=== PATIENT | female | born 2000 | race Two or more races ===

== ENCOUNTER 2023-04-18 17:35 | Emergency (ER) | payer SELFPAY ==
[2023-04-18 19:28] LABS: Bilirubin Neg (Negative); Blood, Urine 50 (Negative); Clarity Clear (Clear); Glucose, Urine (Dipstick) Normal (Negative); Ketone, Urine Negative (Negative); Leukocyte 25 (Negative); Nitrite Negative (Negative); Protein, Urine (Dipstick) 15 mg/dl (Neg-Trace); Urobilinogen Normal mg/dL (Less than 2)
[2023-04-18 19:59] LABS: Bacteria/HPF 1+ HPF (None Seen); CAUTI Indications for Culture Pelvic or flank pain; RBC/HPF 0-3 HPF (0-3); Squamous Epithelial 0-3 HPF (0-3); WBC/HPF 0-3 HPF (0-3)
[2023-04-18 20:00] LABS: Urine Culture Reflex No No
[2023-04-18 20:28] LABS: #Eosinphils 0.1 10x3/uL (0.0-0.5); #Monocytes 0.9 10x3/uL (0.0-1.1); #Neutrophils 5.8 10x3/uL (1.5-8.4); %Basophils 0.4 % (0.0-2.0); %Eosinophils 1.2 % (0.0-6.0); %Lymphocytes 35.1 % (18.0-47.0); %Monocytes 8.6 % (0.0-10.0); %Neutrophils 54.3 % (40.0-75.0); Hemoglobin 12.9 g/dL (12.0-15.5); Mean Corpuscular HGB CONC 33.2 g/dL (32.0-36.0); Mean Corpuscular Hemoglobin 28.6 pg (27.0-33.0); Mean Platelet Volume 10.4 fl (7.4-10.4); Platelet Count 346 10x3/uL (150-450); RBC Distribution Width 12.3 % (11.5-14.5); Red Blood Cell (RBC) Count 4.51 10x6/uL (3.90-5.03); White Blood Cell (WBC) Count 10.6 10x3/uL (3.5-10.5)
== END 2023-04-18 21:26 | disposition home or self-care (01) ==
LOC: CSHERS 17:35
DX: O26.851 Spotting complicating pregnancy, first trimester (principal); O99.891 Other specified diseases and conditions complicating pregnancy; R00.0 Tachycardia, unspecified; Z3A.01 Less than 8 weeks gestation of pregnancy
CPT/HCPCS: 36415; 76856; 81001; 84702; 85025; 86900; 86901

== ENCOUNTER 2023-04-21 08:51 | Emergency (ER) | payer SELFPAY | END 2023-04-21 10:58 | disposition home or self-care (01) | LOC: CSHERS 08:51 | DX: O26.851 Spotting complicating pregnancy, first trimester (principal); O99.281 Endocrine, nutritional and metabolic diseases complicating pregnancy, first trimester; E05.90 Thyrotoxicosis, unspecified without thyrotoxic crisis or storm; Z3A.01 Less than 8 weeks gestation of pregnancy | CPT/HCPCS: 36415; 84702; 99283 ==

== ENCOUNTER 2023-07-09 11:09 | Emergency (ER) | payer MEDICAID, OTHER ==
[2023-07-09 11:42] LABS: Bilirubin Neg (Negative); Blood, Urine Negative (Negative); Glucose, Urine (Dipstick) Normal (Negative); Ketone, Urine Negative (Negative); Leukocyte Negative (Negative); Nitrite Negative (Negative); Protein, Urine (Dipstick) Negative (Neg-Trace); Specific Gravity, Urine 1.025 (1.005-1.030); Urobilinogen Normal mg/dL (Less than 2)
[2023-07-09 11:49] LABS: #Eosinphils 0.2 10x3/uL (0.0-0.5); #Monocytes 0.9 10x3/uL (0.0-1.1); #Neutrophils 6.9 10x3/uL (1.5-8.4); %Basophils 0.3 % (0.0-2.0); %Lymphocytes 18.5 % (18.0-47.0); %Monocytes 8.9 % (0.0-10.0); Hematocrit 35.5 % (34.9-44.5); Hemoglobin 12.2 g/dL (12.0-15.5); Mean Corpuscular HGB CONC 34.4 g/dL (32.0-36.0); Mean Corpuscular Hemoglobin 29.8 pg (27.0-33.0); Mean Corpuscular Volume 86.8 fl (81.6-98.3); Mean Platelet Volume 10.1 fl (7.4-10.4); Platelet Count 315 10x3/uL (150-450); RBC Distribution Width 12.9 % (11.5-14.5); Red Blood Cell (RBC) Count 4.09 10x6/uL (3.90-5.03); White Blood Cell (WBC) Count 9.8 10x3/uL (3.5-10.5)
[2023-07-09 11:50] LABS: Clarity Clear (Clear)
[2023-07-09 11:52] LABS: Bacteria/HPF None Seen HPF (None Seen); CAUTI Indications for Culture Pregnancy; RBC/HPF None Seen HPF (0-3); Squamous Epithelial 0-3 HPF (0-3); WBC/HPF None Seen HPF (0-3)
[2023-07-09 11:53] LABS: Urine Culture Reflex Yes Yes
[2023-07-09 12:09] LABS: ALT (SGPT) 25 U/L (8-55); AST (SGOT) 18 U/L (5-34); Albumin 3.6 g/dL (3.5-5.0); Alkaline Phosphatase 48 U/L (40-110); Anion Gap 14 mmol/L (10-20); BUN (Urea Nitrogen) 8 mg/dL (7.0-18.7); Bilirubin, Total 0.3 mg/dL (0.2-1.2); Calc. Creatinine Clearance 0 mL/min (70-130); Calcium 9.3 mg/dL (7.8-10.44); Carbon Dioxide 20 mmol/L (22-29); Chloride 105 mmol/L (98-107); Estimated GFR 128; Globulin 2.9 g/dL (2.4-3.5); Glucose 90 mg/dL (70-105); Lipase 15 U/L (8-78); Potassium 4.1 mmol/L (3.5-5.1); Protein, Total 6.5 g/dL (6.0-8.3); Sodium 135 mmol/L (136-145)
== END 2023-07-09 14:20 | disposition home or self-care (01) ==
LOC: CSHERS 11:09
DX: O20.9 Hemorrhage in early pregnancy, unspecified (principal); Z3A.17 17 weeks gestation of pregnancy
CPT/HCPCS: 36415; 76805; 80053; 81001; 83690; 85025; 87086

== ENCOUNTER 2023-10-20 08:32 | Day surgery (SDC) | payer OTHER ==
[2023-10-20] MEDS ORDERED: hydrALAZINE 20 MG/ML VIAL SLOW IVP PRN (09:16)
[2023-10-20 09:38] LABS: Bilirubin Neg (Negative); Blood, Urine Negative (Negative); Clarity Clear (Clear); Glucose, Urine (Dipstick) Normal (Negative); Ketone, Urine Negative (Negative); Leukocyte Negative (Negative); Nitrite Negative (Negative); Protein, Urine (Dipstick) Negative (Neg-Trace); Urobilinogen Normal mg/dL (Less than 2)
[2023-10-20 09:56] VITALS: BMI 38.0
[2023-10-20] MEDS ORDERED: Lactated Ringer's 1,000 ML IV SCH (10:00)
[2023-10-20 10:08] LABS: Bacteria/HPF 1+ HPF (None Seen); CAUTI Indications for Culture Dysuria,urgency,freq; RBC/HPF None Seen HPF (0-3); Urine Culture Reflex No No; WBC/HPF None Seen HPF (0-3)
[2023-10-20 10:27] LABS: Creatinine, Urine 72.31 mg/dL (47-110); Protein, Urine Random Quant Less than 10 mg/dL (1-14)
[2023-10-20 10:40] LABS: #Eosinphils 0.1 10x3/uL (0.0-0.5); #Monocytes 0.8 10x3/uL (0.0-1.1); #Neutrophils 7.7 10x3/uL (1.5-8.4); %Basophils 0.3 % (0.0-2.0); %Eosinophils 1.2 % (0.0-6.0); %Lymphocytes 18.2 % (18.0-47.0); %Monocytes 7.5 % (0.0-10.0); %Neutrophils 72.1 % (40.0-75.0); Hematocrit 35.2 % (34.9-44.5); Hemoglobin 11.9 g/dL (12.0-15.5); Mean Corpuscular HGB CONC 33.8 g/dL (32.0-36.0); Mean Corpuscular Hemoglobin 28.7 pg (27.0-33.0); Platelet Count 347 10x3/uL (150-450); RBC Distribution Width 13.2 % (11.5-14.5); Red Blood Cell (RBC) Count 4.14 10x6/uL (3.90-5.03); White Blood Cell (WBC) Count 10.7 10x3/uL (3.5-10.5)
[2023-10-20 10:55] LABS: ALT (SGPT) 13 U/L (8-55); AST (SGOT) 10 U/L (5-34); Albumin 3.5 g/dL (3.5-5.0); Alkaline Phosphatase 86 U/L (40-110); Anion Gap 15 mmol/L (10-20); BUN (Urea Nitrogen) 6 mg/dL (7.0-18.7); Bilirubin, Total 0.4 mg/dL (0.2-1.2); Calc. Creatinine Clearance 278 mL/min (70-130); Carbon Dioxide 19 mmol/L (22-29); Chloride 107 mmol/L (98-107); Estimated GFR 136; Globulin 2.6 g/dL (2.4-3.5); Glucose 86 mg/dL (70-105); Potassium 4.1 mmol/L (3.5-5.1); Protein, Total 6.1 g/dL (6.0-8.3); Sodium 137 mmol/L (136-145)
[2023-10-20] MEDS ORDERED: Cephalexin 500 MG CAP PO SCH (11:00)
== END 2023-10-20 12:40 | disposition home health service (06) ==
LOC: CSHLD/OP 08:32
PROVIDERS: ATTEND Emergency Medicine
DX: O23.593 Infection of other part of genital tract in pregnancy, third trimester (principal); O99.413 Diseases of the circulatory system complicating pregnancy, third trimester; O23.43 Unspecified infection of urinary tract in pregnancy, third trimester; O99.891 Other specified diseases and conditions complicating pregnancy; O00.01 Abdominal pregnancy with intrauterine pregnancy; N39.0 Urinary tract infection, site not specified; R00.0 Tachycardia, unspecified; R03.0 Elevated blood-pressure reading, without diagnosis of hypertension; Z79.2 Long term (current) use of antibiotics; Z3A.32 32 weeks gestation of pregnancy
CPT/HCPCS: 76819; 80053; 81001; 82570; 84156; 85025; 87086; 87480; 87510; 87660

== ENCOUNTER 2023-11-12 16:15 | Day surgery (SDC) | payer OTHER ==
[2023-11-12 16:43] VITALS: BMI 38.9
[2023-11-12] MEDS ORDERED: hydrALAZINE 20 MG/ML VIAL SLOW IVP PRN (16:58)
== END 2023-11-12 19:10 | disposition home or self-care (01) ==
LOC: CSHLD/OP 16:15
PROVIDERS: ATTEND Obstetrics & Gynecology
DX: O47.03 False labor before 37 completed weeks of gestation, third trimester (principal); O99.213 Obesity complicating pregnancy, third trimester; Z79.899 Other long term (current) drug therapy; Z3A.35 35 weeks gestation of pregnancy

== ENCOUNTER 2023-11-28 09:30 | Day surgery (SDC) | payer OTHER ==
[2023-11-28 09:48] VITALS: BP 128/75; TEMP 98.2
[2023-11-28] MEDS ORDERED: hydrALAZINE 20 MG/ML VIAL SLOW IVP PRN (10:40)
[2023-11-28 11:21] LABS: #Eosinphils 0.1 10x3/uL (0.0-0.5); #Monocytes 0.8 10x3/uL (0.0-1.1); #Neutrophils 6.5 10x3/uL (1.5-8.4); %Basophils 0.2 % (0.0-2.0); %Eosinophils 0.9 % (0.0-6.0); %Monocytes 8.2 % (0.0-10.0); %Neutrophils 71.2 % (40.0-75.0); Hematocrit 33.1 % (34.9-44.5); Hemoglobin 11.2 g/dL (12.0-15.5); Mean Corpuscular HGB CONC 33.8 g/dL (32.0-36.0); Mean Corpuscular Hemoglobin 27.9 pg (27.0-33.0); Mean Corpuscular Volume 82.3 fl (81.6-98.3); Platelet Count 313 10x3/uL (150-450); RBC Distribution Width 13.2 % (11.5-14.5); Red Blood Cell (RBC) Count 4.02 10x6/uL (3.90-5.03); White Blood Cell (WBC) Count 9.2 10x3/uL (3.5-10.5)
[2023-11-28] MEDS: Acetaminophen 500 MG TAB PO SCH (11:34)
[2023-11-28 11:49] LABS: ALT (SGPT) 9 U/L (8-55); AST (SGOT) 12 U/L (5-34); Albumin 3.1 g/dL (3.5-5.0); Alkaline Phosphatase 127 U/L (40-110); Anion Gap 12 mmol/L (10-20); BUN (Urea Nitrogen) 7 mg/dL (7.0-18.7); Bilirubin, Total 0.3 mg/dL (0.2-1.2); Calc. Creatinine Clearance 1 mL/min (70-130); Carbon Dioxide 21 mmol/L (22-29); Chloride 107 mmol/L (98-107); Estimated GFR 130; Globulin 2.8 g/dL (2.4-3.5); Glucose 121 mg/dL (70-105); Potassium 3.8 mmol/L (3.5-5.1); Protein, Total 5.9 g/dL (6.0-8.3); Sodium 136 mmol/L (136-145)
[2023-11-28 12:54] LABS: Creatinine, Urine 91.62 mg/dL (47-110)
[2023-11-28] MEDS ORDERED: Metoclopramide HCl 10 MG TAB PO SCH (13:15)
[2023-11-28] MEDS ORDERED: diphenhydrAMINE 25 MG CAP PO SCH (13:15)
== END 2023-11-28 14:48 | disposition home health service (06) ==
LOC: CSHLD/OP 09:30
PROVIDERS: ATTEND Obstetrics & Gynecology
DX: O16.3 Unspecified maternal hypertension, third trimester (principal); Z3A.37 37 weeks gestation of pregnancy; Z79.899 Other long term (current) drug therapy
CPT/HCPCS: 76819; 80053; 82570; 84156; 85025

== ENCOUNTER 2023-12-08 18:06 | Day surgery (SDC) | payer OTHER ==
[2023-12-08 18:53] VITALS: BMI 40.0
[2023-12-08] MEDS ORDERED: hydrALAZINE 20 MG/ML VIAL SLOW IVP PRN (19:00)
[2023-12-08] MEDS ORDERED: Acetaminophen 500 MG TAB PO SCH (19:15)
[2023-12-08 20:14] LABS: #Eosinphils 0.1 10x3/uL (0.0-0.5); #Monocytes 0.9 10x3/uL (0.0-1.1); #Neutrophils 7.6 10x3/uL (1.5-8.4); %Basophils 0.2 % (0.0-2.0); %Eosinophils 0.7 % (0.0-6.0); %Lymphocytes 19.5 % (18.0-47.0); %Neutrophils 70.9 % (40.0-75.0); Hematocrit 32.8 % (34.9-44.5); Hemoglobin 11.3 g/dL (12.0-15.5); Mean Corpuscular HGB CONC 34.5 g/dL (32.0-36.0); Mean Corpuscular Hemoglobin 28.4 pg (27.0-33.0); Mean Corpuscular Volume 82.4 fl (81.6-98.3); Mean Platelet Volume 11.3 fl (7.4-10.4); Platelet Count 299 10x3/uL (150-450); RBC Distribution Width 13.6 % (11.5-14.5); Red Blood Cell (RBC) Count 3.98 10x6/uL (3.90-5.03); White Blood Cell (WBC) Count 10.7 10x3/uL (3.5-10.5)
[2023-12-08 20:15] LABS: Creatinine, Urine 134.64 mg/dL (47-110)
[2023-12-08 20:34] LABS: ALT (SGPT) 12 U/L (8-55); AST (SGOT) 14 U/L (5-34); Albumin 3.3 g/dL (3.5-5.0); Alkaline Phosphatase 150 U/L (40-110); Anion Gap 13 mmol/L (10-20); BUN (Urea Nitrogen) 12 mg/dL (7.0-18.7); Bilirubin, Total 0.4 mg/dL (0.2-1.2); Calc. Creatinine Clearance 251 mL/min (70-130); Calcium 9.2 mg/dL (7.8-10.44); Carbon Dioxide 20 mmol/L (22-29); Chloride 106 mmol/L (98-107); Estimated GFR 131; Globulin 2.6 g/dL (2.4-3.5); Glucose 91 mg/dL (70-105); Potassium 4.3 mmol/L (3.5-5.1); Protein, Total 5.9 g/dL (6.0-8.3); Sodium 135 mmol/L (136-145)
== END 2023-12-08 21:19 | disposition home or self-care (01) ==
LOC: CSHLD/OP 18:06
PROVIDERS: ATTEND Obstetrics & Gynecology
DX: O99.891 Other specified diseases and conditions complicating pregnancy (principal); R03.0 Elevated blood-pressure reading, without diagnosis of hypertension; O99.213 Obesity complicating pregnancy, third trimester; Z79.899 Other long term (current) drug therapy; Z3A.39 39 weeks gestation of pregnancy
CPT/HCPCS: 36415; 80053; 82570; 84156; 85025; 99283

== ENCOUNTER 2023-12-10 08:00 | Inpatient (IN) | payer OTHER ==
[2023-12-10] MEDS ORDERED: Lidocaine 1% (PF) 30 ML VIAL SC PRN (12:19)
[2023-12-10] MEDS ORDERED: HYDROcodone/Acetaminophen 5/325 mg Tablet PO PRN ×2 (12:19)
[2023-12-10] MEDS ORDERED: Promethazine HCl 25 MG/ML VIAL IM PRN (12:19)
[2023-12-10] MEDS ORDERED: Misoprostol 200 MCG TAB PR PRN (12:19)
[2023-12-10] MEDS ORDERED: fentaNYL 50 mcg/mL 1 mL Vial SLOW IVP PRN (12:19)
[2023-12-10] MEDS ORDERED: hydrALAZINE 20 MG/ML VIAL SLOW IVP PRN (12:19)
[2023-12-10] MEDS ORDERED: Methylergonovine 0.2 MG/ML VIAL IM PRN (12:19)
[2023-12-10] MEDS ORDERED: Ibuprofen 800 MG TAB PO PRN (12:19)
[2023-12-10] MEDS ORDERED: Oxytocin 30 units/NS 500 ML 500 ML IV SCH (12:30)
[2023-12-11 00:40] VITALS: BMI 40.0
[2023-12-11 01:29] LABS: Hematocrit 33.2 % (34.9-44.5); Hemoglobin 11.3 g/dL (12.0-15.5); Mean Corpuscular Hemoglobin 28.3 pg (27.0-33.0); Mean Corpuscular Volume 83.2 fl (81.6-98.3); Mean Platelet Volume 11.4 fl (7.4-10.4); Platelet Count 276 10x3/uL (150-450); RBC Distribution Width 13.9 % (11.5-14.5); Red Blood Cell (RBC) Count 3.99 10x6/uL (3.90-5.03); White Blood Cell (WBC) Count 9.1 10x3/uL (3.5-10.5)
[2023-12-11] MEDS: Misoprostol 100 MCG TAB PO SCH (01:32)
[2023-12-11] MEDS: Lactated Ringer's 1,000 ML IV SCH (01:33)
[2023-12-11 01:53] LABS: HBSAg Index 0.23 S/CO (0-0.99); Hep B Surf Ag - L&D Non-Reactive S/CO (NonReactive)
[2023-12-11 01:55] LABS: Syphilis Antibody Nonreactive (Nonreactive); Syphilis Antibody Index 0.05 S/CO (<1.00 Non-Reactive)
[2023-12-11] MEDS ORDERED: Acetaminophen 500 MG TAB PO PRN (02:12)
[2023-12-11 03:16] LABS: Bilirubin Neg (Negative); Blood, Urine Negative (Negative); Clarity Clear (Clear); Glucose, Urine (Dipstick) Normal (Negative); Ketone, Urine Negative (Negative); Leukocyte Negative (Negative); Nitrite Negative (Negative); Protein, Urine (Dipstick) 15 mg/dl (Neg-Trace); Specific Gravity, Urine 1.015 (1.005-1.030); Urobilinogen Normal mg/dL (Less than 2)
[2023-12-11 03:24] LABS: Bacteria/HPF None Seen HPF (None Seen); CAUTI Indications for Culture Pregnancy; RBC/HPF None Seen HPF (0-3); WBC/HPF None Seen HPF (0-3)
[2023-12-11 03:25] LABS: Urine Culture Reflex Yes Yes
[2023-12-11 03:33] LABS: Fetal Membranes Rupture No Membranes Rupture (No Rupture)
[2023-12-11] MEDS: Oxytocin 30 units/NS 500 ML 500 ML IV SCH (20:46)
[2023-12-11] MEDS ORDERED: fentaNYL/Ropivacaine Epidural 100 ML ONE (21:38)
[2023-12-11] MEDS ORDERED: Ondansetron PF 4 MG/2 ML Vial IVP PRN (23:18)
[2023-12-11] MEDS ORDERED: Promethazine HCl 25 MG/ML VIAL IM PRN (23:18)
[2023-12-11] MEDS ORDERED: Lactated Ringer's 500 ML IV PRN (23:18)
[2023-12-11] MEDS ORDERED: ePHEDrine Sulfate 50 MG/10 ML VIAL SLOW IVP PRN (23:18)
[2023-12-11] MEDS ORDERED: Naloxone HCl 0.4 mg/ml Vial IVP PRN ×2 (23:18)
[2023-12-11] MEDS ORDERED: Moisturizing Cream (Eucerin) 113 GM JAR TOP PRN (23:18)
[2023-12-11] MEDS ORDERED: diphenhydrAMINE 50 MG/ML VIAL IVP PRN (23:18)
[2023-12-11] MEDS ORDERED: Communication Order-Pharmacy FS SCH (23:30)
[2023-12-12] MEDS: Acetaminophen 325 MG TAB PO PRN (03:05)
[2023-12-12] MEDS: Ondansetron PF 4 MG/2 ML Vial IVP PRN (03:43)
[2023-12-12] MEDS: Fioricet 325/50/40 mg Tablet PO PRN (07:47)
[2023-12-12] MEDS: fentaNYL 2 mcg/Ropivacaine 0.2% Epidural 100 ML CADD EPIDURAL SCH (12:56)
[2023-12-12] MEDS ORDERED: Famotidine/PF 20 mg/2ml Vial SLOW IVP PRN (20:53)
[2023-12-12] MEDS ORDERED: Bicitra 30 ML UDCUP PO PRN (20:53)
[2023-12-12] MEDS ORDERED: Azithromycin 500 MG in Sodium Chloride 0.9% 250 ML 250 ML IVPB SCH (21:00)
[2023-12-12] MEDS ORDERED: CEFAZOLIN 2 GM in Sodium Chloride 0.9% 100 ML IVPB SCH (21:00)
[2023-12-13] MEDS ORDERED: Moisturizing Cream (Eucerin) 113 GM JAR TOP PRN (01:19)
[2023-12-13] MEDS ORDERED: Promethazine HCl 25 MG SUPP PR PRN (01:19)
[2023-12-13] MEDS ORDERED: Promethazine HCl 25 MG/ML VIAL IM PRN (01:19)
[2023-12-13] MEDS ORDERED: Naloxone HCl 0.4 mg/ml Vial IV PRN (01:19)
[2023-12-13] MEDS ORDERED: Meperidine HCl/PF 25 MG (1 mL) VIAL SLOW IVP PRN (01:19)
[2023-12-13] MEDS ORDERED: Naloxone HCl 0.4 mg/ml Vial IVP PRN ×2 (01:19)
[2023-12-13] MEDS ORDERED: diphenhydrAMINE 50 MG/ML VIAL IVP PRN (01:19)
[2023-12-13] MEDS ORDERED: Ondansetron PF 4 MG/2 ML Vial IVP PRN ×2 (01:19)
[2023-12-13] MEDS ORDERED: HYDROmorphone 0.5 MG/0.5 ML SYRINGE SLOW IVP PRN (01:19)
[2023-12-13 01:26] LABS: Analyzer IN Cardio CS NICU; Critical Notified By: CP.PH; Critical Notified Whom: NUR.CSI5; RapidComm Collect By CBN; pH (Cord, venous) 7.297 (7.250-7.350)
[2023-12-13 01:28] LABS: Analyzer IN Cardio CS NICU; Critical Notified By: CP.PH; Critical Notified Whom: NUR.CSI5; RapidComm Collect By CBN
[2023-12-13] MEDS ORDERED: Communication Order-Pharmacy FS SCH (01:30)
[2023-12-13] MEDS: Ketorolac Tromethamine 30 MG (1 mL) VIAL IVP SCH (03:36)
[2023-12-13] MEDS: fentaNYL 50 mcg/mL 1 mL Vial SLOW IVP PRN (03:47)
[2023-12-13 04:05] LABS: D-Dimer Test 3.84 mcg/mL (0.19-0.50); INR-International Normal Ratio 0.9; Prothrombin Time 9.9 sec (9.5-12.1)
[2023-12-13] MEDS ORDERED: Oxytocin 30 units/NS 500 ML 500 ML IV SCH (07:07)
[2023-12-13] MEDS ORDERED: Misoprostol 200 MCG TAB PR PRN (07:07)
[2023-12-13] MEDS ORDERED: hydrALAZINE 20 MG/ML VIAL SLOW IVP PRN (07:07)
[2023-12-13] MEDS ORDERED: Methylergonovine 0.2 MG/ML VIAL IM PRN (07:07)
[2023-12-13] MEDS ORDERED: Lactated Ringer's 1,000 ML IV SCH (07:07)
[2023-12-13] MEDS ORDERED: Lanolin Ointment 7 GM TUBE TOP PRN (07:07)
[2023-12-13 07:57] LABS: Hematocrit 32.6 % (34.9-44.5); Mean Corpuscular HGB CONC 33.7 g/dL (32.0-36.0); Mean Platelet Volume 12.1 fl (7.4-10.4); Platelet Count 260 10x3/uL (150-450); RBC Distribution Width 14.6 % (11.5-14.5); Red Blood Cell (RBC) Count 3.93 10x6/uL (3.90-5.03); White Blood Cell (WBC) Count 21.3 10x3/uL (3.5-10.5)
[2023-12-13] MEDS ORDERED: Ibuprofen 800 MG TAB PO SCH (09:00)
[2023-12-13] MEDS: Lactated Ringer's 1,000 ML IV SCH (10:00)
[2023-12-13 11:24] LABS: Hematocrit 28.8 % (34.9-44.5); Hemoglobin 9.8 g/dL (12.0-15.5)
[2023-12-13 11:39] LABS: Anion Gap 10 mmol/L (10-20); BUN (Urea Nitrogen) 10 mg/dL (7.0-18.7); Calc. Creatinine Clearance 230 mL/min (70-130); Calcium 8.3 mg/dL (7.8-10.44); Carbon Dioxide 21 mmol/L (22-29); Chloride 107 mmol/L (98-107); Estimated GFR 128; Glucose 108 mg/dL (70-105); Potassium 4.2 mmol/L (3.5-5.1); Sodium 134 mmol/L (136-145)
[2023-12-13] MEDS: Docusate 100 MG CAP PO SCH (13:07)
[2023-12-13] MEDS: Prenatal Vitamin 1 TAB PO SCH (13:07)
[2023-12-13] MEDS: Dexmedetomidine 200 MCG/2 ML VIAL ONE (13:09)
[2023-12-13] MEDS: CEFAZOLIN 2 GM VIAL ONE (13:09)
[2023-12-13] MEDS: Azithromycin 500 MG VIAL ONE (13:09)
[2023-12-13] MEDS: Dexamethasone 4 mg/ml Vial ONE (13:10)
[2023-12-13] MEDS: Ibuprofen 800 MG TAB PO SCH (13:18)
[2023-12-13] MEDS ORDERED: HYDROcodone/Acetaminophen 5/325 mg Tablet PO PRN ×2 (13:30)
[2023-12-13] MEDS: Morphine PF 10 MG/10 ML VIAL ONE (15:01)
[2023-12-13] MEDS: PHENYLEPHRINE-NS 100 MCG/ML 10 ML SYRINGE ONE (15:02)
[2023-12-13] MEDS: Midazolam HCl 2 mg/2 ml Vial ONE (15:02)
[2023-12-13] MEDS: Lidocaine 2% MPF 10 ML AMP (For Epidural Use) ONE (15:02)
[2023-12-13] MEDS: ePHEDrine Sulfate 50 MG/10 ML VIAL ONE (15:02)
[2023-12-13] MEDS: Oxytocin 10 UNITS/ML VIAL ONE (15:02)
[2023-12-13] MEDS: Ondansetron PF 4 MG/2 ML Vial ONE (15:02)
[2023-12-13] MEDS: KETAMINE 100 MG/ML (5ML VIAL) ONE (15:02)
[2023-12-13] MEDS: Methylergonovine 0.2 MG/ML VIAL ONE (15:08)
[2023-12-13] MEDS: Tranexamic Acid 1,000 MG/10 ML VIAL ONE (15:10)
[2023-12-13 15:35] LABS: #Basophils 0.02 10x3/uL (0.0-0.2); #Eosinphils 0.01 10x3/uL (0.0-0.5); #Neutrophils 12.39 10x3/uL (1.5-8.4); %Basophils 0.1 % (0.0-2.0); %Eosinophils 0.1 % (0.0-6.0); %Lymphocytes 13.8 % (18.0-47.0); %Monocytes 8.1 % (0.0-10.0); %Neutrophils 77.5 % (40.0-75.0); Hematocrit 26.7 % (34.9-44.5); Hemoglobin 9.1 g/dL (12.0-15.5); Mean Corpuscular HGB CONC 34.1 g/dL (32.0-36.0); Mean Corpuscular Hemoglobin 28.3 pg (27.0-33.0); Mean Corpuscular Volume 82.9 fl (81.6-98.3); Mean Platelet Volume 12.1 fl (7.4-10.4); Platelet Count 234 10x3/uL (150-450); RBC Distribution Width 14.9 % (11.5-14.5); Red Blood Cell (RBC) Count 3.22 10x6/uL (3.90-5.03)
[2023-12-13 15:41] LABS: INR-International Normal Ratio 0.9; PTT 32.5 sec (22.0-33.0); Prothrombin Time 10.2 sec (9.5-12.1)
[2023-12-13] MEDS: PROPOFOL 20 ML ONE (19:32)
[2023-12-14 04:10] LABS: #Basophils 0.02 10x3/uL (0.0-0.2); #Eosinphils 0.03 10x3/uL (0.0-0.5); #Monocytes 1.09 10x3/uL (0.0-1.1); #Neutrophils 10.11 10x3/uL (1.5-8.4); %Basophils 0.2 % (0.0-2.0); %Eosinophils 0.2 % (0.0-6.0); %Lymphocytes 13.3 % (18.0-47.0); %Monocytes 8.3 % (0.0-10.0); %Neutrophils 77.2 % (40.0-75.0); Hematocrit 25.3 % (34.9-44.5); Hemoglobin 8.6 g/dL (12.0-15.5); Mean Corpuscular Hemoglobin 28.1 pg (27.0-33.0); Mean Corpuscular Volume 82.7 fl (81.6-98.3); Mean Platelet Volume 11.2 fl (7.4-10.4); Platelet Count 253 10x3/uL (150-450); RBC Distribution Width 15.5 % (11.5-14.5); Red Blood Cell (RBC) Count 3.06 10x6/uL (3.90-5.03); White Blood Cell (WBC) Count 13.1 10x3/uL (3.5-10.5)
[2023-12-14] MEDS: Furosemide 20 MG TAB PO SCH (06:26)
[2023-12-14] MEDS: Ferrous Sulfate 325 MG TAB PO SCH (08:16)
[2023-12-14] MEDS: Simethicone Chewable 80 MG TAB PO PRN (08:16)
[2023-12-14] MEDS ORDERED: Milk Of Magnesia 30 ML UDCUP PO PRN (13:06)
[2023-12-14] MEDS ORDERED: Polyethylene Glycol 3350 17 GM Packet PO PRN (13:07)
[2023-12-14] MEDS: Milk Of Magnesia 30 ML UDCUP PO SCH (14:04)
[2023-12-15 03:15] LABS: Hemoglobin 7.8 g/dL (12.0-15.5)
[2023-12-15 05:31] VITALS: BP 109/62; TEMP 97.7
[2023-12-15] MEDS: Iron, Sodium Ferric Gluconate 250 MG in Sodium Chloride 0.9% 250 ML 250 ML IVPB SCH (08:23)
[2023-12-15] MEDS: SUCCINYLCHOLINE/SOD CL,ISO/PF 200 MG/10 ML SYRINGE FS ONE (08:54)
[2023-12-15] MEDS: fentaNYL 50 mcg/mL 1 mL Vial ONE (08:54)
[2023-12-15] MEDS: Oxytocin 10 UNITS/ML VIAL ONE (08:54)
[2023-12-15] MEDS: Boostrix 0.5 ML (Tdap) VIAL (>/=7 yrs of age) IM ONE (08:54)
[2023-12-15] MEDS: PHENYLEPHRINE-NS 100 MCG/ML 10 ML SYRINGE ONE (08:54)
[2023-12-15] MEDS: Esmolol 100 MG/10 ML VIAL ONE (08:55)
== END 2023-12-15 16:55 | disposition home or self-care (01) | DRG 788 ==
LOC: CSHLD 23:58 → CSHPP 12-13 08:20
PROVIDERS: ADMIT Obstetrics & Gynecology; ATTEND Obstetrics & Gynecology
PROC: 3E033VJ Introduction of Other Hormone into Peripheral Vein, Percutaneous Approach (ICD-10-PCS; 2023-12-12)
PROC: 10H07YZ Insertion of Other Device into Products of Conception, Via Natural or Artificial Opening (ICD-10-PCS; 2023-12-12)
PROC: 10D00Z1 Extraction of Products of Conception, Low, Open Approach (ICD-10-PCS; principal; 2023-12-13)
PROC: 30243N1 Transfusion of Nonautologous Red Blood Cells into Central Vein, Percutaneous Approach (ICD-10-PCS; 2023-12-13)
DX: O99.214 Obesity complicating childbirth (principal); Z37.0 Single live birth; E66.9 Obesity, unspecified; Z3A.39 39 weeks gestation of pregnancy; O64.0XX0 Obstructed labor due to incomplete rotation of fetal head, not applicable or unspecified; O72.1 Other immediate postpartum hemorrhage
CPT/HCPCS: 36415; 36430; 80048; 81001; 82728; 82805; 84112; 85014; 85018; 85025; 85027; 85049; 85300; 85362; 85384; 85610; 85730; 86762; 86780; 86850; 86900; 86901; 87086; 87340; J1100; J1885; J2210; J2250; J2274; J2405; J2590; J2704; J2916; J3010; J7050; J7120; P9016

== ENCOUNTER 2024-02-21 00:32 | Emergency (ER) | payer OTHER ==
[2024-02-21] MEDS ORDERED: Ondansetron PF 4 MG/2 ML Vial ONE (01:34)
[2024-02-21] MEDS ORDERED: Morphine 4 MG/ML VIAL ONE (01:34)
[2024-02-21 01:37] LABS: #Basophils 0.02 10x3/uL (0.0-0.2); #Eosinphils 0.17 10x3/uL (0.0-0.5); #Monocytes 0.71 10x3/uL (0.0-1.1); #Neutrophils 6.67 10x3/uL (1.5-8.4); %Basophils 0.2 % (0.0-2.0); %Eosinophils 1.4 % (0.0-6.0); %Lymphocytes 36.1 % (18.0-47.0); Hematocrit 36.9 % (34.9-44.5); Hemoglobin 12.2 g/dL (12.0-15.5); Mean Corpuscular HGB CONC 33.1 g/dL (32.0-36.0); Mean Corpuscular Hemoglobin 26.4 pg (27.0-33.0); Mean Corpuscular Volume 79.9 fL (81.6-98.3); Mean Platelet Volume 9.9 fL (7.4-10.4); Platelet Count 389 10x3/uL (150-450); RBC Distribution Width 13.9 % (11.5-14.5); Red Blood Cell (RBC) Count 4.62 10x6/uL (3.90-5.03); White Blood Cell (WBC) Count 11.9 10x3/uL (3.5-10.5)
[2024-02-21 01:44] LABS: BHCG - Serum Negative (NEGATIVE); Pregs Control Background? CLEAR/WHITE (CLR/WHITE); Pregs Control Bar Appear? YES (CONTROL BAR)
[2024-02-21 01:50] LABS: ALT (SGPT) 37 U/L (8-55); AST (SGOT) 40 U/L (5-34); Albumin 3.8 g/dL (3.5-5.0); Alkaline Phosphatase 102 U/L (40-110); Anion Gap 16 mmol/L (10-20); BUN (Urea Nitrogen) 20 mg/dL (7.0-18.7); Bilirubin, Total 0.3 mg/dL (0.2-1.2); Calc. Creatinine Clearance 0 mL/min (70-130); Calcium 9.7 mg/dL (7.8-10.44); Carbon Dioxide 22 mmol/L (22-29); Chloride 105 mmol/L (98-107); Estimated GFR 110; Globulin 3.6 g/dL (2.4-3.5); Glucose 125 mg/dL (70-105); Lipase 28 U/L (8-78); Potassium 3.8 mmol/L (3.5-5.1); Protein, Total 7.4 g/dL (6.0-8.3); Sodium 139 mmol/L (136-145)
[2024-02-21 01:51] LABS: Magnesium 1.7 mg/dL (1.6-2.6)
[2024-02-21] MEDS ORDERED: Ketorolac Tromethamine 30 MG (1 mL) VIAL ONE (01:54)
[2024-02-21] MEDS ORDERED: HYDROcodone/Acetaminophen 5/325 mg Tablet ONE (03:55)
== END 2024-02-21 04:59 | disposition home or self-care (01) ==
LOC: CSHERS 00:32
DX: K80.20 Calculus of gallbladder without cholecystitis without obstruction (principal)
CPT/HCPCS: 76705; 80053; 83605; 83690; 83735; 84703; 85025; 96374; 96375; J1885; J2270; J2405